=== PATIENT | male | born 1980 | race Two or more races ===

== ENCOUNTER 2023-03-23 22:20 | Emergency (ER) | payer OTHER ==
[~2023-03-23] VITALS: Ht 165.1 cm; Wt 64.9 kg
[2023-03-23 23:26] VITALS: BP 144/101; TEMP 98.3
[2023-03-23] MEDS ORDERED: AMOX-430 PO (23:27)
[2023-03-23] MEDS ORDERED: TDAP [DIPH/PERTUSSIS/TET] 0.5 ML VIAL IM ONE ×2 (23:30)
[2023-03-23] MEDS ORDERED: AMOX/CLAVULANATE 875 MG TABLET ONE (23:30)
[2023-03-23] MEDS ORDERED: AMOX/CLAVULANATE 875 MG TABLET PO ONE (23:30)
[2023-03-24 00:24] VITALS: O2SAT 100
== END 2023-03-24 00:25 | disposition home or self-care (01) ==
LOC: ER 22:24
DX: S81.831A Puncture wound without foreign body, right lower leg, initial encounter (principal); W54.0XXA Bitten by dog, initial encounter; Y93.89 Activity, other specified; Y92.89 Other specified places as the place of occurrence of the external cause; Y99.8 Other external cause status
CPT/HCPCS: 73590-TC; 90715

== ENCOUNTER 2024-06-01 13:52 | Emergency (ER) | payer OTHER ==
[~2024-06-01] VITALS: Ht 165.1 cm; Wt 68.0 kg
[~2024-06-01 13:52] MED LIST: AMOX-430 PO
[2024-06-01 14:10] VITALS: TEMP 98.6
[2024-06-01] MEDS ORDERED: GUAI1TBM19 PO (15:50)
[2024-06-01] MEDS ORDERED: BENZ-13 PO (15:50)
[2024-06-01 15:52] VITALS: BP 132/90
[2024-06-01 15:55] VITALS: O2SAT 99
== END 2024-06-01 15:55 | disposition home or self-care (01) ==
LOC: ER 14:12
DX: R50.9 Fever, unspecified (principal); R05.9 Cough, unspecified; R09.81 Nasal congestion; Z79.899 Other long term (current) drug therapy
CPT/HCPCS: 71045-TC